=== PATIENT | female | born 1960 | race Caucasian/White ===

== ENCOUNTER 2018-06-09 09:25 | Outpatient (CLI) | payer OTHER ==
[2018-06-09 17:27] LABS: Free T4 (Free Thyroxine) 0.99 ng/dL (0.70-1.48)
== END 2018-06-09 09:26 | disposition home or self-care (01) ==
LOC: MADLAB 09:25 → MADLABBHPM 09:26
PROVIDERS: ATTEND Family Medicine
DX: R94.6 Abnormal results of thyroid function studies (principal); I10 Essential (primary) hypertension
CPT/HCPCS: 36415; 84439; 84481; 86376; 93005; 93010

== ENCOUNTER 2018-08-06 21:29 | Emergency (ER) | payer OTHER ==
[2018-08-06] MEDS ORDERED: Sodium Chloride 0.9% 1,000 ML ONE (21:56)
[2018-08-06] MEDS ORDERED: Pantoprazole 40 MG VIAL ONE (21:56)
[2018-08-06] MEDS ORDERED: Ondansetron PF 4 MG/2 ML Vial ONE (21:56)
[2018-08-06 22:37] LABS: ALT (SGPT) 30 U/L (8-55); AST (SGOT) 21 U/L (5-34); Albumin 4.4 g/dL (3.5-5.0); Alcohol 151 mg/dL (Less than 10); Alkaline Phosphatase 70 U/L (40-150); Anion Gap 17 mmol/L (10-20); BUN (Urea Nitrogen) 11 mg/dL (9.8-20.1); Bilirubin, Total 0.5 mg/dL (0.2-1.2); CK (CPK) 70 U/L (29-168); Calc. Creatinine Clearance 0 mL/min (70-130); Calcium 9.1 mg/dL (7.8-10.44); Carbon Dioxide 19 mmol/L (22-29); Chloride 106 mmol/L (98-107); Estimated GFR-MDRD 63; Glucose 103 mg/dL (70-105); Potassium 3.1 mmol/L (3.5-5.1); Protein, Total 7.4 g/dL (6.0-8.3); Sodium 139 mmol/L (136-145)
[2018-08-06 22:47] LABS: #Basophils 0.1 thou/uL (0.0-0.2); #Eosinphils 0.1 thou/uL (0.0-0.7); #Lymphocytes 2.9 thou/uL (1.20-3.40); #Monocytes 0.7 thou/uL (0.11-0.59); #Neutrophils 4.9 thou/uL (1.40-6.50); %Basophils 1.3 % (0.0-1.0); %Eosinophils 0.9 % (0.0-10.0); %Monocytes 8.1 % (0.0-10.0); %Neutrophils 56.7 % (42.0-75.0); Hemoglobin 14.3 g/dL (12.0-16.0); Mean Corpuscular Volume 87.3 fL (78.0-98.0); Mean Platelet Volume 6.9 fL (7.4-10.4); Platelet Count 272 thou/uL (130-400); White Blood Cell (WBC) Count 8.7 thou/uL (4.8-10.8)
[2018-08-06] MEDS ORDERED: NS 0.9% w/ 20 MEQ KCL 1,000 ML ONE (22:54)
[2018-08-06 23:00] LABS: CKMB 0.5 ng/mL (0-6.6)
--- NOTE | 2018-08-07 00:13 | RAD ---
EXAM: CHEST ONE VIEW HISTORY: Chest pain COMPARISON: 04/21/2014 FINDINGS: The cardiac silhouette and pulmonary vasculature is within normal limits. There is increased density overlying the left lung which may represent overlying left breast prosthesis. Lungs are otherwise clear. The osseous structures are intact. IMPRESSION: No acute cardiopulmonary process.
[2018-08-07 01:04] LABS: Bilirubin Negative (Negative); Blood, Urine Negative (Negative); Clarity Clear (Clear); Glucose, Urine (Dipstick) Negative (Negative); Leukocyte Negative (Negative); Nitrite Negative (Negative); Protein, Urine (Dipstick) Negative (Neg-Trace); Urobilinogen 0.2 mg/dL (0.2-1.0); pH, Urine 5.5 (5.0-9.0)
[2018-08-07] MEDS ORDERED: Aspirin Chewable 81 MG TAB ONE (01:08)
[2018-08-07 01:09] LABS: Specific Gravity, Urine 1.008 (1.002-1.036)
[2018-08-07 01:12] LABS: Amphetamine Not Detected (NotDetected); Barbiturates Screen Not Detected (NotDetected); Benzodiazepine Screen Not Detected (NotDetected); Cocaine Metabolite Screen Not Detected (NotDetected); Medtox Control Line Valid? VALID (VALID); Methadone Not Detected (NotDetected); Methamphetamine Not Detected (NotDetected); Opiate Screen Not Detected (NotDetected); Oxycodone Screen Not Detected (NotDetected); Phencyclidine (PCP) Not Detected (NotDetected); THC/Cannabinoid Screen Not Detected (NotDetected); Tricyclic Screen Not Detected (NotDetected)
== END 2018-08-07 01:52 | disposition short-term general hospital (02) ==
LOC: MADERS 21:29
DX: I21.4 Non-ST elevation (NSTEMI) myocardial infarction (principal); F10.129 Alcohol abuse with intoxication, unspecified; R11.10 Vomiting, unspecified; E87.6 Hypokalemia; I10 Essential (primary) hypertension; Z79.899 Other long term (current) drug therapy
CPT/HCPCS: 36415; 71045; 80053; 80306; 80307; 81003; 82550; 82553; 84484; 85025; 93005; 96361; 96365; 96366; 96375; C9113; J2405; J3480; J7050